=== PATIENT | male | born 1950 | race Caucasian/White ===

== ENCOUNTER 2021-01-22 14:42 | Inpatient (IN) | payer OTHER ==
[~2021-01-22] VITALS: Ht 182.9 cm; Wt 113.9 kg
--- NOTE | ~2021-01-22 | O ---
[facility] [place] [address] [address] [place] [address] OPERATIVE REPORT Name: AMINTA EARLY Room #: 454-P ADM IN M.R.#: [id number] Admission: 01/22/21 Attend Phys: Osman Krishnamurthy MD Discharge: Date of : 48 Report #: [id number] THIS REPORT FOR: cc: FAM - Family physician unknown FAM - Family physician unknown Joshua Peguero MD ~ DOC #: [id number] Joshua Peguero MD DATE OF SERVICE: 01/25/2021 PREOPERATIVE DIAGNOSIS: Acute cholecystitis with abnormal LFTs. POSTOPERATIVE DIAGNOSIS: Acute cholecystitis with choledocholithiasis. PROCEDURE: Laparoscopic cholecystectomy with intraoperative cholangiogram. SURGEON: Joshua Peguero MD ANESTHESIA: General. ESTIMATED BLOOD LOSS: 300 mL. SPECIMENS: Gallbladder. DRAIN: A 10-Welsh round. DESCRIPTION OF PROCEDURE: After informed consent was obtained, the patient was brought to the operating room and placed supine. SCDs were placed and working. Preoperative antibiotics were administered. General anesthesia was induced. The abdomen was prepped and draped in the usual sterile fashion. A 5 mm incision was made in the left upper quadrant. A 5 mm trocar was placed under direct vision. Pneumoperitoneum was established. The left-sided 5 mm trocar was placed. A cautery was used to take down some adhesions of the omentum to the anterior abdominal wall. This allowed for me to be able to place a 5 mm port above the umbilicus under direct vision. Three right upper quadrant ports were placed, all under direct vision. Gallbladder was grasped and retracted cephalad. It was decompressed with a needle. There was white bile. The triangle of Calot was very inflamed. I was able to identify the structures. A ductotomy was made. Cholangiogram catheter was inserted and a cholangiogram was performed. This demonstrated filling of the cystic duct, common bile duct, bifurcation of the hepatics, there was dilation of the common bile duct with multiple common bile duct stones. The contrast did, however, go into the duodenum. The cholangiogram had been performed, the catheter was removed. [facility] [address] [place] [address] OPERATIVE REPORT Name: AMINTA EARLY Room #: 454-P ADM IN M.R.#: [id number] Admission: 01/22/21 Attend Phys: Osman Krishnamurthy MD Discharge: Date of : 48 Report #: [id number] cystic duct was clipped and ligated with a clip and a PDS Endoloop. Gallbladder was then taken off the liver bed with electrocautery. It was placed into an Endopouch and removed. Oozing in the liver bed was controlled with cautery. FloSeal and Surgicel was also used to achieve hemostasis. There was good hemostasis at the end of the case. The ports were removed under direct vision. The fascia and the right-sided incision was closed with a [id number] 0 Vicryl. Skin was closed with 4-0 Monocryl. Incisions were sealed with Steri-Strips. COMPLICATIONS: None. DISPOSITION: The patient was taken to recovery in satisfactory condition. Joshua Peguero MD JDP/KDA By: [id number] Joshua Peguero MD /nt
[2021-01-22 16:08] VITALS: BP 100/49
[2021-01-22] MEDS ORDERED: LIPITOR 20 MG T20 M1 PO (19:50)
[2021-01-22] MEDS ORDERED: BALSALAZIDE DI750 M1 PO (19:50)
[2021-01-22] MEDS ORDERED: CARVEDILOL25 MG PO (19:51)
[2021-01-22] MEDS ORDERED: DILTIAZEM ER180 M2 PO (19:52)
[2021-01-22] MEDS ORDERED: FENOFIBRATE160 MG PO (19:53)
[2021-01-22] MEDS ORDERED: FISH OIL 1,001000 M3 PO (19:54)
[2021-01-22] MEDS ORDERED: FOLIC ACID1 MG PO (19:55)
[2021-01-22] MEDS ORDERED: FUROSEMIDE 20 M20 MG PO (19:55)
[2021-01-22] MEDS ORDERED: GLIPIZIDE ER10 MG PO (19:57)
[2021-01-22] MEDS ORDERED: COZAAR 25 MG TA25 M1 PO (19:58)
[2021-01-22] MEDS ORDERED: METFORMIN HCL500 M3 PO (19:58)
[2021-01-22] MEDS ORDERED: SPIRONOLACTONE25 MG PO (20:00)
[2021-01-22] MEDS ORDERED: ACTOS 45 MG45 M1 PO (20:00)
[2021-01-22] MEDS ORDERED: B COMPLEX1 EACH PO (20:01)
[2021-01-22] MEDS ORDERED: VITAMIN C500 M2 PO (20:02)
--- NOTE | 2021-01-22 20:28 | NUR ---
Direct admit from [facility] due to abdominal pain; transferred to room safely. On room air. Vital signs stable. On NPO- pt informed and aware; mouth swabs provided. On MS, not on telemetry; no complains and signs of chest pain, crushing sensation and heaviness. Assisted in ADLs. Continent of bowel and bladder, able to use urinal- output measured and recorded accordingly. No complains of pain made during assessment. With SL at R FA- NS at 100cc/hr started as ordered; on IV antibiotics as well. Admission assessment, history and education done. Admission forms signed.\ Dr Goncalves informed re: admission; pt seen by Dr Goncalves and ELVIA Calderon at bedside.
[2021-01-22 20:44] VITALS: BP 90/52
[2021-01-23 00:10] VITALS: BP 89/51
[2021-01-23 05:11] VITALS: BP 93/56
[2021-01-23 06:01] LABS: ABSOLUTE NEUTROPHILS 17.3 thou/uL (1.4-8.2); HEMATOCRIT 28.6 % (42.0-52.0); HEMOGLOBIN 9.1 gm/dL (14.0-18.0); LYMPHOCYTES 1.8 % (24.0-44.0); MCHC 31.9 g/dL (28.0-37.0); MCV 84.8 fL (80.0-100.0); MONOCYTES 4.7 % (1.0-8.0); PLATELET COUNT 176 thou/uL (150-400); POLYS 93.5 % (36.0-66.0); RBC 3.37 mil/uL (4.50-6.00); RDW 15.7 % (10.5-14.5); WBC 18.5 thou/uL (4.0-11.0)
[2021-01-23 06:25] LABS: ALBUMIN 2.4 g/dL (3.4-5.0); CALCIUM 8.5 mg/dL (8.5-10.1); CREATININE 2.7 mg/dL (0.7-1.3); MAGNESIUM 1.7 mg/dL (1.8-2.4); POTASSIUM 4.6 mmol/L (3.5-5.1); TOTAL BILIRUBIN 3.3 mg/dL (0.2-1.0); TOTAL PROTEIN 5.7 g/dL (6.4-8.2)
--- NOTE | 2021-01-23 07:20 | NUR ---
ASSUMED PT CARE AROUND 1900. A&OX4. VERY PLEASANT AND COOPERATIVE. C/O VERY MILD RUQ AND LUQ ABDOMINAL PAIN. PT DID NOT WANT ANY PAIN MEDICATION. DENIED N/V. NPO SINCE MIDNIGHT UNTIL SEEN BY GI AND SURGERY TODAY. PT SLEPT MOST OF THE NIGHT. RESP EVEN AND UNLABORED. PROGRESSING SLOWLY TOWARD POC GOALS. REPORT GIVEN TO ONCOMING NURSE.
[2021-01-23 07:30] VITALS: BP 109/48
[2021-01-23 15:33] VITALS: BP 106/47
--- NOTE | 2021-01-23 16:40 | NUR ---
Assumed pt care at 7am.Pt in and out of bed to bathroom byself with steady gait.Assessment completed.vss but low dbp noted.Dr Irving notified.Pt kept npo for abdominal us which was done around 10am.Blood sugar at noon was 62.Dr Irving notified.Order received.1amp of D50 given ivp with better result.Pt in bed resting and watching tv without c/o.Will continue to monitor.
[2021-01-23 19:46] VITALS: BP 121/60
[2021-01-24 04:05] LABS: URINE BILIRUBIN 1+ (Negative); URINE BLOOD NEGATIVE (Negative); URINE CLARITY CLEAR; URINE COLOR YELLOW; URINE GLUCOSE-RANDOM* NEGATIVE (Negative); URINE KETONES NEGATIVE (Negative); URINE LEUKOCYTES-REFLEX NEGATIVE (Negative); URINE NITRITE-REFLEX NEGATIVE (Negative); URINE PROTEIN (DIPSTICK) 1+ (Negative); URINE UROBILINOGEN 0.2 E.U./dl (0.2-1.0)
[2021-01-24 04:11] LABS: ICTOTEST (BILI CONFIRMATORY) Positive (Negative)
[2021-01-24 04:12] LABS: BACTERIA-REFLEX None Seen /HPF (None Seen); CRYSTALS None Seen /LPF (None Seen); FINE GRANULAR CASTS 0-3 Few /LPF (None Seen); MUCUS 0-3 Light strn/LPF (None Seen); SQUAMOUS None Seen /LPF (0-3); URINE WBC-REFLEX None Seen /HPF (0-5)
[2021-01-24 04:13] LABS: AMORPHOUS URATES Few /LPF (None Seen); URINE RBC None Seen /HPF (NONE SEEN)
--- NOTE | 2021-01-24 05:10 | NUR ---
Assumed pt care at 1900. A/OX4,pleasant. VSS. Denies N/V, pain 08/30 on assessment denies need for any pain meds. Pt's NPO for possible ERCP/MRCP.Ice and swabs provided for oral care. N.o for bladder scan and straight cathif >400cc. Void 200cc,bladder scan 14cc. C/o sinus congestion;order for Flonase obtained.Up ad maddy,voiding per urinal. Pending collection of OBS,will endorse to oncoming nurse. Resting quietly w/o any distress at this time,will continue to monitor pt. IVF infusing via RFA w/o problems.
[2021-01-24 05:42] LABS: INR 1.98; PROTIME 20.9 Seconds (10.5-12.1)
[2021-01-24 05:45] LABS: ALBUMIN 2.3 g/dL (3.4-5.0); CALCIUM 8.6 mg/dL (8.5-10.1); CREATININE 2.2 mg/dL (0.7-1.3); MAGNESIUM 2.3 mg/dL (1.8-2.4); PHOSPHORUS 2.2 mg/dL (2.6-4.7); TOTAL BILIRUBIN 2.4 mg/dL (0.2-1.0); TOTAL PROTEIN 5.8 g/dL (6.4-8.2)
[2021-01-24 05:49] LABS: ABSOLUTE NEUTROPHILS 7.6 thou/uL (1.4-8.2); BASOPHILS 0.2 % (0.0-2.0); EOSINOPHILS 0.6 % (0.0-3.0); HEMATOCRIT 26.6 % (42.0-52.0); HEMOGLOBIN 8.9 gm/dL (14.0-18.0); LYMPHOCYTES 2.2 % (24.0-44.0); MCH 28.1 pg (26.0-34.0); MCHC 33.5 g/dL (28.0-37.0); MONOCYTES 4.7 % (1.0-8.0); PLATELET COUNT 174 thou/uL (150-400); POLYS 92.3 % (36.0-66.0); RBC 3.16 mil/uL (4.50-6.00); RDW 15.7 % (10.5-14.5); WBC 8.2 thou/uL (4.0-11.0)
[2021-01-24 05:51] LABS: POTASSIUM 3.6 mmol/L (3.5-5.1)
[2021-01-24 07:39] VITALS: BP 129/60
[2021-01-24 11:12] VITALS: BP 129/60
[2021-01-24 16:49] VITALS: BP 145/65
[2021-01-24 19:24] VITALS: BP 151/62
--- NOTE | 2021-01-24 19:24 | NUR ---
ASSUMED CARE OF PATIENT AT SHIFT CHANGE. ASSESSMENT CHARTED. MEDICATIONS ADMINISTERED PER EMAR. VSS. PATIENT IS A&OX4 AND ABLE TO MAKES NEEDS KNOWN. PATIENT GETS UP INDEPENDENTLY; STEADY ON FEET AND NO ISSUES. SPOKE TO DR CRUZ AND OKAYED PATIENT FOR CLR LIQUIDS BUT WILL BE NPO AFTER MIDNIGHT FOR ERCP/MRCP. NEW IV PLACED ON L FA INFUSING ABX AND PPN W NO ISSUES. FSBS STABLE THIS SHIFT. DENIES PAIN OR OTHER NEEDS. ENDORSED TO NOC RN
[2021-01-25 05:34] LABS: ALBUMIN 2.1 g/dL (3.4-5.0); CALCIUM 8.5 mg/dL (8.5-10.1); CREATININE 1.7 mg/dL (0.7-1.3); MAGNESIUM 2.2 mg/dL (1.8-2.4); POTASSIUM 4.1 mmol/L (3.5-5.1); TOTAL PROTEIN 5.7 g/dL (6.4-8.2)
--- NOTE | 2021-01-25 07:55 | NUR ---
Assumed pt care at 1900. A/OX4,VSS. Denies pain or N/V. Up ad maddy in room w/o any problems. PPN/Abts infusing via LFA w/o any problems. Pt has been NPO since midnight for surgery. Blood sugar stable. Pt denies any further needs at this time. 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
--- NOTE | 2021-01-25 14:45 | NUR ---
ASSUMED CARE OF PATIENT AT SHIFT CHANGE. ASSESSMENT CHARTED. MEDICATIONS HELD PER NPO STATUS. PATIENT IS A&OX4 AND MAKES NEEDS KNOWN. STEADY ON FEET AND ADLIB PRIOR TO LAP GER. ABX & PPN INFUSING ON L FA W NO ISSUES; PATIENT LEFT UNIT AT APPROX. 0800 FOR THE LAP. GER. PATIENT RETURNED AROUND 1245. PATIENT RESTARTED ON REGULAR DIET HOWEVER APPETITE IS POOR AFTER SURGERY. PATIENT IS TOLERATING ICE WATER WELL. PATIENT A BIT SLEEPY STILL BUT IS EASILY AROUSED. VOICES DULL PAIN ON ABD AREA ISRAEL. HAYDEE SITE. PATIENT NOW HAS 4 LAP SITES THAT ARE C/D/I &1 SITE WITH MICHAEL THOMAS DRAIN ATTACHED ON RUQ. PATIENT MAY NEED ERCP TOMORROW HOWEVER HAND PRESSER FROM GI STATED HE MAY HAVE PASSED THE STONES AND MAY NO LONGER NEED IT. IF INDICATED PATIENT WILL BE NPO AFTER MIDNIGHT. PATIENT VOICES NO FURTHER NEEDS; WILL CONTINUE TO MONITOR FREQUENTLY
--- NOTE | 2021-01-25 15:41 | NUR ---
PT ADMITTED RELATED TO CHOLELITHIASIS FROM [facility]. CM REVIEWED CHART AND SPOKE WITH CARE TEAM. CM MET WITH PT AT BEDSIDE THIS DAY. PT APPEARED TO BE A&O X4. CM ROLE INTRODUCED. PT INDICATED HE RESIDES IN A HOUSE WITH HIS PETS WITH 1 STEP TO ENTER AND A COUPLE STEPS INSIDE. 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 PT INDICATED NO DME. PT INDICATED HIS PCP IS DR. CALABRESE AT [facility]. PT INDICATED HE WILL NEED TRANSPORT BACK TO HIS CARE IN THE ED AT [facility] UPON DC. PT HAD MARY CYR THIS DAY. CM FOLLOWING REGARDING DC PLANNING.
--- NOTE | 2021-01-25 16:41 | NUR ---
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
[2021-01-25 17:44] LABS: HEMATOCRIT 30.4 % (42.0-52.0); HEMOGLOBIN 9.9 gm/dL (14.0-18.0); MCH 27.4 pg (26.0-34.0); MCHC 32.6 g/dL (28.0-37.0); MCV 83.9 fL (80.0-100.0); RBC 3.62 mil/uL (4.50-6.00); RDW 16.1 % (10.5-14.5); WBC 14.6 thou/uL (4.0-11.0)
[2021-01-25 19:44] VITALS: BP 149/70
[2021-01-26] VITALS (11 sets, daily range): BP systolic 111–182; BP diastolic 68–96
--- NOTE | 2021-01-26 04:05 | NUR ---
ASSUMED CARE OF PT AT SHIFT CHANGE. PT IS AOX4 AND LETS NEEDS BE KNOWN. PT IS POST OP DAY O. 4XLAP SITES ARE C/D/I. HAYDEE DRAIN IN PLACE. ASSESSMENT CHARTED. PT REPORTED SOME ABD PAIN; PRNS PROVIDED. PT DENIED NAUSEA OR SOA. PT WAS PLACED NPO AT NM. PPN AND ABX TREATMENT CONTINUED. PT WAS ABLE TO GET COMFORTABLE AND SLEEP PART OF THE SHIFT. VSS AND NO S/S OF ACUTE DISTRESS. WILL CONTINUE TO MONITOR.
[2021-01-26 06:11] LABS: CALCIUM 8.4 mg/dL (8.5-10.1); CREATININE 1.7 mg/dL (0.7-1.3); MAGNESIUM 2.4 mg/dL (1.8-2.4); PHOSPHORUS 2.6 mg/dL (2.5-4.9)
[2021-01-26 06:40] LABS: HEMATOCRIT 26.7 % (42.0-52.0); HEMOGLOBIN 8.8 gm/dL (14.0-18.0); MCH 27.3 pg (26.0-34.0); MCHC 32.9 g/dL (28.0-37.0); RBC 3.22 mil/uL (4.50-6.00); RDW 15.5 % (10.5-14.5); WBC 9.5 thou/uL (4.0-11.0)
[2021-01-26 06:56] LABS: PROTIME 34.5 Seconds (10.5-12.1)
[2021-01-26 06:58] LABS: INR 3.35
--- NOTE | 2021-01-26 13:41 | NUR ---
PT IS POD# 1 FROM LAP GER. PT TO HAVE AN ERCP THIS DAY. CM FOLLOWING REGARDING DC PLANNING. PT WILL NEED TRNASPROT UPON DC.
[2021-01-26 15:00] LABS: INR 2.37; PROTIME 24.8 Seconds (10.5-12.1)
--- NOTE | 2021-01-26 15:41 | NUR ---
ASSUMED CARE OF PT AT 0700 THIS MORNING. PT WAS ADMITTED FOR CHOLELITHIASIS. PT HAS LAPRASCOPY SITESX4 WITH TENDERNESS AND BLOATING FEELING IN ABD. PT IS A/OX4, SKING W/D/ATR, SKING INTACT EXCEPT LAP SITES. PT IS NPO AND IS TO HAVE ANOTHER CLEANOUT TODAY. PT'S INR WAS ABOVE 3 AND NEEDS FFB TRANSFUSIONS PRIOR TO THE PROCEDURE. TRANSFUSED 2 UNITS BEFORE LAB CAME TO DRAW BLOOD. ADMINISTERING 4 TOTAL UNITS. BEFORE PT GOES DOWN FOR PROCEDURE. ASSESSMENTS OTHERWISE UNREMARKABLE. CALL LIGHT AND OTHER NEEDS ARE WITHIN REACH AND PT CAN ANBULATE TO THE RESTROOM WITH SB ASST.VSS, MEDS AND TX GIVEN NEEDED AND SCHEDULED.
--- NOTE | 2021-01-26 20:55 | NUR ---
Pt. arrived to the unit from PACU and staff settled patient into the room. This nurse entred the room and patient was short of air and 02 sat at 88% on 2L nasal canula. Pt. skin color pale. He is alert and offers no c/o pain. Abdomen disteneded and hard upon palpatation. Bp elevated. O2 saturations decreasing to the upper 70's. All four lung alexandra coarse upon auscultation. Rapid response team was called. Lung sounds in all 4 lung alexandra were coarse upon auscultation. Skin color pale. Abdomen was hard upon palpatation and distended. Pt. awake and talking to nurse. No c/o pain, but c/o shortness of air. Bp also boston- vated. Rapid response team was called.
[2021-01-26 21:20] LABS: HEMATOCRIT 32.9 % (42.0-52.0); HEMOGLOBIN 10.2 gm/dL (14.0-18.0); MCH 26.7 pg (26.0-34.0); MCV 86.1 fL (80.0-100.0); RBC 3.82 mil/uL (4.50-6.00); RDW 16.7 % (10.5-14.5)
[2021-01-26 21:24] LABS: WBC 27.4 thou/uL (4.0-11.0)
[2021-01-26 21:39] LABS: ALBUMIN 2.6 g/dL (3.4-5.0); CALCIUM 8.9 mg/dL (8.5-10.1); CREATININE 1.6 mg/dL (0.7-1.3); TOTAL BILIRUBIN 1.5 mg/dL (0.2-1.0); TOTAL PROTEIN 6.5 g/dL (6.4-8.2); TROPONIN-I 0.09 ng/mL (<0.06)
--- NOTE | 2021-01-26 21:41 | NUR ---
RESPONDED TO MANAGER INTERNSHIP FOR DYSPNEA POST ERCP. O2 SAT 60'S ON 2L NC UPON ARRIVAL. PLACED ON NRB 100% WITH LITTLE IMPROVEMENT. RT TO BEDSIDE FOR TX. EKG CHANGES NOTED WITH NEW LEFT BUNDLE. PT DENIES CHEST PAIN BUT IS UNABLE TO SPEAK IN COMPLETE SENTENCES DUE TO DYSPNEA. PT BEGAN LOSING CONSCIOUSNESS, STARTED BAGGING IMMEDIATELY WITH SAT INTO UPPER 80S. ER DOCTOR CALLED FOR RAPID INTUBATION AND TRANSFER TO ICU. CARLITO BROOKS TO BEDSIDE. SEE MANAGER INTERNSHIP FLOWSHEET FOR FURTHER DETAILS.
[2021-01-26 21:42] LABS: POTASSIUM 6.3 mmol/L (3.5-5.1)
--- NOTE | 2021-01-26 21:45 | NUR ---
Ernestina Cook called and updated on patient. Pt. needing intubation. Araceli STRANGE at the bedside. Call place to patients Authorized contact, Tye Murphy, but no answer. Message left on voice mail. Pt. transfered to ICU.
--- NOTE | 2021-01-26 22:20 | NUR ---
PT DOWN TO CT SCAN WITH ON AWAKE COUNSELOR, RN NEONATAL, AND RT ON TRANSPORT MONITOR FOR CT SCAN HEAD/ABD/PELVIS. PT REMAINS OBTUNDED.
[2021-01-26 23:31] LABS: BE(vivo) -7.4 mmol/L (-2 to +3); HCO3 20.4 mmol/L (22.0-26.0); PCO2 51.7 mmHg (35.0-45.0); PO2 183.5 mmHg (80.0-100.0)
[2021-01-26 23:32] LABS: pH 7.214 (7.360-7.450)
[2021-01-27] VITALS (30 sets, daily range): BP systolic 81–136; BP diastolic 45–94
[2021-01-27 00:09] LABS: CALCIUM 8.5 mg/dL (8.5-10.1); CREATININE 2.1 mg/dL (0.7-1.3)
[2021-01-27 00:10] LABS: POTASSIUM 6.5 mmol/L (3.5-5.1)
[2021-01-27 04:35] LABS: BE(vivo) -3.3 mmol/L (-2 to +3); HCO3 21.2 mmol/L (22.0-26.0); PCO2 35.8 mmHg (35.0-45.0); PO2 100.4 mmHg (80.0-100.0); pH 7.391 (7.360-7.450); sO2 97.6 % (92.0-98.0)
--- NOTE | 2021-01-27 06:07 | NUR ---
PT TRANSFERED FROM TO ICU AROUND 2229. HE ARRIVED INTUBED AND ON THE VENT WITH 100% FIO2. DR COKER AND DR GUERRA WERE UPDATED ON PT STATUS. DR GUERRA STATED HE HAD ALREADY SPOKEN WITH DR LEDBETTER (SURGERY) REGARDING PT CHANGE IN STATUS. PT WAS MINIMALLY RESPONSIVE UPON INITIAL ASSESSMENT. HE LATER BECAME EASILY ARROUSABLE TO STIMULI AND IS ABLE TO FOLLOW COMMANDS. PROPOFOL INITIATED FOR VENT MGT. BILAT WRIST RESTRAINTS IN PLACE TO PREVENT DISCONNECTING MEDICAL EQUIPTMENT, PT DOES MOVE ARMS WHEN HE IS AWAKE. SBP 80S-100S WITH INCREASE IN PROPOFOL GTT. 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 PT WEANED OFF PROPOFOL GTT. INSTEAD, FENTANYL AND VERSED GTTS WERE STARTED FOR VENT MGT WITHOUT CAUSING MUCH HYPOTENSION. OGT TO LIS WITH SMALL AMOUNT DARK RED OUTPUT. CARBALLO TO DD WITH ADEQUATE URINE OUTPUT. RT TITRATED FIO2 DOWN TO 40%. PT TOLERATING VENT WELL. RN ATTEMPTED TO CALL PT'S AUTHORIZED CONTACT LAST NIGHT. MESSAGE LEFT. NO CALL BACK YET. PT NOT PROGRESSING WELL TOWARD POC GOALS. WILL GIVE REPORT TO ONCOMING NURSE.
[2021-01-27 06:12] LABS: CALCIUM 7.8 mg/dL (8.5-10.1); MAGNESIUM 2.5 mg/dL (1.8-2.4)
[2021-01-27 06:13] LABS: POTASSIUM 6.6 mmol/L (3.5-5.1)
--- NOTE | 2021-01-27 08:59 | EKG ---
[address] [employer] [place] [address] ELECTROCARDIOGRAM REPORT Name: AMINTA EARLY Room #: 239-P ADM IN M.R.#: [id number] Admission: 01/22/21 Attend Phys: Osman Krishnamurthy MD Discharge: Date of : 48 Report #: [id number] [facility] Test Date: 2021-01-27 Test Time: 08:24:56 Pat Name: AMINTA EARLY Department: Room: 239 Gender: M Production Grip: FSCHWALBE : 1950 Requested By: Ivette Albarran Order Number: [id number] MD: Mo Bangura Measurements Intervals [place] Rate: 69 P: 25 GA: 81 QRS: 42 QRSD: 94 T: 52 QT: 451 QTc: 484 Interpretive Statements Sinus rhythm Short GA interval Borderline low voltage, extremity leads Borderline prolonged QT interval No previous ECG available for comparison Electronically Signed On 01-27-2021 8:58:45 CDT by Mo Bangura [email or web address] <ELECTRONICALLY SIGNED> By: Mo Bangura MD, [facility] 01/27/21 0858 3 Mo Bangura MD, FACC /EPI
[2021-01-27 11:56] LABS: INR 1.3
--- NOTE | 2021-01-27 12:10 | EKG ---
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
--- NOTE | 2021-01-27 12:16 | NUR ---
BLOOD NOTED AT THE OGTUBE AT 0530 THIS MORNING, SO FAR 300cc FILLED IN CANNISTER, DARK RED FLUID, GI MANAGER CLINICAL INFORMATICS NOTIFIED. HARDNESS NOTED AT THE RUQ WELL. COAG PROFILED ORDERED. LASIX GIVEN THIS MONING BY RENAL FOR ELEVATED POTASSIUM WELL. APPOXIMATELY 1.5L DIURESED SO FAR. MAP REMAINS >65. PT STILL REMAINS ON FENTANYL/VERSED GTT FOR SEDATION. PT IS SEDATED/DROWSY, AWAKE ENOUGH TO NOD YES/NO, CURRENTLY TOLERATING THE VENT SETTINGS.
[2021-01-27 13:13] LABS: HEMATOCRIT 27.1 % (42.0-52.0); HEMOGLOBIN 8.8 gm/dL (14.0-18.0)
[2021-01-27 13:27] LABS: BE(vivo) -0.8 mmol/L (-2 to +3); HCO3 23.1 mmol/L (22.0-26.0); PCO2 35.1 mmHg (35.0-45.0); pH 7.436 (7.360-7.450); sO2 99.3 % (92.0-98.0)
--- NOTE | 2021-01-27 15:34 | P ---
[facility] [place] [address] [address] [place] [address] PROCEDURE REPORT Name: AMINTA EARLY Room #: 239-P ADM IN M.R.#: [id number] Admission: 01/22/21 Attend Phys: Osman Krishnamurthy MD Discharge: Date of : 48 Report #: [id number] THIS REPORT FOR: cc: FAM - Family physician unknown FAM - Family physician unknown Pablo Leigh MD ~ DOC #: [id number] cc: Joshua Peguero MD, MD Pablo Zepeda MD DATE OF SERVICE: 01/26/2021 PROCEDURE PERFORMED: Endoscopic retrograde cholangiopancreatography with sphincterotomy and stone removal. HISTORY OF PRESENT ILLNESS: The patient is a 70-year-old male with recent history of abdominal pain and elevated liver function test, underwent ultrasound of the abdomen on 01/23/2021 showing cholelithiasis and sludge noted in the gallbladder with slight gallbladder wall thickening. Findings consistent with early changes of acute cholecystitis. Common bile duct was dilated at 9 mm. He underwent laparoscopic cholecystectomy by Dr. Peguero yesterday. Intraoperative cholangiogram was obtained showing multiple filling defects consistent with choledocholithiasis. Plan is for ERCP today. Currently, his labs show white blood cell count 9.5, hemoglobin 8.8, platelet count 189. Earlier today, his INR was checked at 3.35. We then gave him 3 units of FFP prior to the third one being fully given his INR was repeated at 2.37. He was given a total of 4 of FFP today. He is already on IV Zosyn at this time. His bilirubin today was 2.0, which is down from 3.3 on admission. Plan is for ERCP. DESCRIPTION OF PROCEDURE: The risks and benefits of the procedure were explained to the patient, those risks including but not limited to bleeding, perforation and the risk of sedation as well as potential risk for post-ERCP pancreatitis. He understood these risks and gave informed consent. The procedure was performed in the operating room under general anesthesia. The patient was already on scheduled IV Zosyn at this time. He was given 50 mg indomethacin rectal suppository prior to the procedure as well. Next, using a standard Olympus side-viewing ERCP scope, the scope was placed in the patient's mouth and advanced under direct vision through the esophagus, stomach and into the second portion of the duodenum, at which point the major papilla was identified and normal in appearance other than adjacent diverticulum was noted. Next, using a Garcia-Cook 0.025 sphincterotome catheter, the common bile duct was cannulated and a cholangiogram was obtained. Multiple filling defects consistent with common bile duct stones were seen. Common bile duct was dilated to approximately 10 mm. The intrahepatics were normal. The recent clip on the cystic duct were seen. There was no evidence of bile leak with cholangiogram. At this point, a large sphincterotomy was performed without difficulty. Next, I [address] [address] PROCEDURE REPORT Name: AMINTA EARLY Room #: 239-P ADM IN M.R.#: [id number] Admission: 01/22/21 Attend Phys: Osman Krishnamurthy MD Discharge: Date of : 48 Report #: [id number] used a balloon catheter. Multiple sweeps were performed, some sludge and debris were removed; however, stones remained on cholangiogram. At that point, I decided to proceed with a basket catheter. With this, I was able to crush and remove all the stones. Multiple stones were removed. Multiple sweeps were performed. After this, a balloon occlusion cholangiogram was then obtained. No further obvious filling defects were seen. There appears to be good bile drainage as well as a contrast drainage at this point. At this point, the scope was then withdrawn and the procedure terminated. The patient tolerated the procedure well. IMPRESSION: 1. Multiple common bile duct stones and dilated common bile duct, status post endoscopic retrograde cholangiopancreatography with sphincterotomy and removal of stones, both with the balloon and wire basket as described above. 2. No evidence of bile leak. 3. Normal intrahepatic ducts. RECOMMENDATIONS: 1. Observe the patient post-procedure. 2. Continue IV antibiotics. 3. Continue to monitor liver function tests. Thank you for allowing me to participate in his care. Pablo Leigh MD CCM/ALL <ELECTRONICALLY SIGNED> By: Pablo Leigh MD 01/27/21 1534 1859 0016 Pablo Leigh MD /nt
--- NOTE | 2021-01-27 19:07 | PATH ---
[facility] [address] [place] [address] PATHOLOGY RPT PROCEDURE Name: AMINTA EARLY Room #: 239-P ADM IN M.R.#: [id number] Admission: 01/22/21 Date of : 48 Discharge: Report #: [id number] Path Case #: [id number] [facility] Accession Number: [id number] . 01 Material submitted: . gallbladder - GALLBLADDER . 01 Clinical history: . LAPAROSCOPIC CHOLECYSTECTOMY WITH G.... CHOLELITHIASIS . 02 Diagnosis: Gallbladder, cholecystectomy: - Marked acute cholecystitis with extensive ulceration. - Moderate acute serositis. - Cholelithiasis. - Cauterized hepatic parenchyma at gallbladder bed. (IUV:pit; 01/27/2021) QTP 01/27/2021 1435 Local . 02 Electronically signed: . Landy Bell MD, Pathologist NPI- [id number] . 01 Gross description: . Fixative: Formalin Labeled: Gallbladder Specimen received: Previously opened cholecystectomy specimen Dimensions: 8.5 x 4.8 x 4.3 cm Serosa: Capellan-red and hemorrhagic with multiple full-thickness defect in the hepatic bed measuring from 0.4-2.3 cm in greatest dimension Lymph node: None identified Mucosa: Capellan-brown and velvety with capellan-white purulent exudate in the gallbladder neck and gallbladder fundus Average wall thickness: Ranges from 0.4-0.8 cm Calculi: Yes, multiple multifaceted red-brown calculi are present within the gallbladder and container measuring in aggregate 5.5 x 4.5 x 2.3 cm and ranging from 0.1-3.5 cm in greatest dimension Abnormalities: The wall of the fundus appears cystic and thickened. A1- Facing End Trimmer body, fundus, and the cystic duct margin. A2- Additional fundus. ([facility]; 01/26/2021) [facility] 01/26/2021 1824 Local . 02 Pathologist provided ICD-10: K80.00, K65.8, K82.8 . 02 CPT . [address] [address] PATHOLOGY RPT PROCEDURE Name: AMINTA EARLY Room #: 239-P ADM IN M.R.#: [id number] Admission: 01/22/21 Date of : 48 Discharge: Report #: [id number] Path Case #: [id number] Specimen Comment: A courtesy copy of this report has been sent to [phone], [phone] Specimen Comment: [phone] Specimen Comment: Report sent to / DR ZABALA Performed at: [address], [place], [place] [id number] MD Enio Richmond MD Phone: [phone] Performed at: [address] [id number] MD Landy Bell MD Phone: [phone]
[2021-01-28] VITALS (21 sets, daily range): BP systolic 122–141; BP diastolic 57–81
--- NOTE | 2021-01-28 01:36 | NUR ---
ASSESSMENT: PT REMAIN ALERT AND ORIENT TIMES THREE, FORGETFUL AT TIMES TO EQUIPMENT AND POC. EXTUBATING SELF TODAY, PT CURRENTLY IS ON 3 LITERS NC WITH SATS 98-99%. MINIMAL AMTS OF SPUTUM, SUCTION PER BRANDY PROVIDED. SPUTUM BARR IN COLOR AND THICK. NO BM THIS SHIFT,. CARBALLO PATENT WITH ADEQUATE AMTS OF UO. HAYDEE DRAIN INTACT, SS OUTPUT. VSS, AFEBRILE. SR PER MONITOR. FOLLOW COMMANDS. FAIR PROGRESS TOWARDS DC GOALS. WILL CONTINUE TO MONITOR.
[2021-01-28 04:43] LABS: HEMATOCRIT 24.5 % (42.0-52.0); HEMOGLOBIN 8.1 gm/dL (14.0-18.0); MCH 27.4 pg (26.0-34.0); MCV 83.2 fL (80.0-100.0); RBC 2.95 mil/uL (4.50-6.00); RDW 15.7 % (10.5-14.5); WBC 12.7 thou/uL (4.0-11.0)
[2021-01-28 04:51] LABS: INR 1.3
[2021-01-28 04:58] LABS: CALCIUM 8.1 mg/dL (8.5-10.1); CREATININE 1.8 mg/dL (0.7-1.3); MAGNESIUM 2.1 mg/dL (1.8-2.4); PHOSPHORUS 1.7 mg/dL (2.5-4.9); POTASSIUM 4.1 mmol/L (3.5-5.1)
--- NOTE | 2021-01-28 07:49 | HC ---
[facility] [place] [address] CONSULTATION Name: AMINTA EARLY Room #: 239-P ADM IN M.R.#: [id number] Admission: 01/22/21 Attend Phys: Osman Krishnamurthy MD Discharge: Date of : 48 Report #: [id number] THIS REPORT FOR: cc: FAM - Family physician unknown FAM - Family physician unknown Yi Suarez MD ~ DOC #: [id number] Yi Suarez MD REASON FOR CONSULTATION: Elevated creatinine. REASON FOR THE PRESENTATION: Acute cholecystitis, transfer. HISTORY OF PRESENT ILLNESS: This is obtained from the medical record. The patient is currently intubated and sedated. He is a 70-year-old with a history of hypertension, Crohn's disease. He was a direct admit from [facility] for general surgery evaluation for an episode of acute cholecystitis. I am not able to obtain any details from the patient given his current intubation status. He reported to the admitting team that he was having some upper quadrant abdominal pain for a few days before his presentation. Other details are not available. The patient's CT revealed cholelithiasis suggesting acute cholecystitis with some degree of biliary ductal obstruction. The patient had laparoscopic cholecystectomy. Postoperatively, the patient's condition deteriorated with significant worsening of his pulmonary status, requiring intubation; hypotension, requiring an ICU admission. He ended up having an ERCP with a cholangiogram. He is currently in the ICU after his sphincterotomy and cholecystectomy required fresh frozen plasma for an elevated INR. Postoperatively, the patient's potassium had been persistently elevated, his creatinine on arrival to our facility was 2.7, trended down to as low as 1.6 and now is up to 2.0. I was consulted to manage his acute kidney injury. PAST MEDICAL HISTORY: I am not able to obtain any details about his past medical history given his current mental status. HOME MEDICATIONS: 1. Fenofibrate. 2. Atorvastatin. 3. Carvedilol. 4. Losartan. 5. Spironolactone. 6. Lasix. 7. Folic acid. 8. Glipizide. ALLERGIES: GEMFIBROZIL. [facility] [address] [place] [address] CONSULTATION Name: AMINTA EARLY Room #: 239-P [facility] IN .R.#: [id number] Admission: 01/22/21 Attend Phys: Osman Krishnamurthy MD Discharge: Date of : 48 Report #: [id number] FAMILY HISTORY: Unobtainable given the patient's current mental status. SOCIAL HISTORY: Unobtainable given the patient's current mental status. PHYSICAL EXAMINATION: GENERAL: The patient is intubated and sedated. VITAL SIGNS: Blood pressure is 100/50, pulse rate is 70, respiratory rate is 15. HEAD AND NECK: ET tube in place. CHEST: No crackles, but decreased air entry bilaterally. CARDIOVASCULAR: No rubs detected. ABDOMEN: Soft. There is a drain in the right upper quadrant. EXTREMITIES: Lower extremities, +1 edema. LABORATORY :VALUES White blood cell count is up to 27.4, hemoglobin is 10.2, platelets is 336. Sodium is 143, potassium is 6.6, BUN is 46, creatinine is 2.0. ASSESSMENT, IMPRESSION AND PLAN: 1. Acute kidney injury. 2. Hyperkalemia. 3. Post-cholecystectomy. 4. Post-sphincterotomy for gallbladder stones. 5. The patient appears to be in septic shock causing his rapid deterioration. This has resulted in worsening of his renal function due to acute tubular necrosis and hyperkalemia. 6. Continue current measures of IV fluid resuscitation. 7. One time Lasix dose. 8. Treat his hyperkalemia. 9. He was maintained on an angiotensin converting enzyme inhibitor and spironolactone as an outpatient and those were discontinued; however, his potassium was within normal range on his arrival. We need to obtain his previous values. 10. Routine postoperative care. 11. Appropriate antibiotic coverage for sepsis. 12. ID consultation given his significant leukocytosis. 13. We will continue to follow during his hospital stay. I will reach out his family member. No indication for dialysis at this point. Yi Suarez MD AIA/SHE [address] [address] CONSULTATION Name: AMINTA EARLY Room #: 239-P ADM IN M.R.#: [id number] Admission: 01/22/21 Attend Phys: Osman Krishnamurthy MD Discharge: Date of : 48 Report #: [id number] <ELECTRONICALLY SIGNED> By: Yi Suarez MD 01/28/21 0749 2 Yi Suarez MD /nt
--- NOTE | 2021-01-28 13:02 | NUR ---
PT IS PROGRESSING TOWARDS DISCHARGE, WAS PLACED ON CLEAR LIQ DIET TODAY, PT ABLE TO TOLERATE FOOD OKAY, PT HAS BEEN C/O BURPING SINCE THE SURGERY AND APPEARS UNCOMFORABLE AT TIMES. NO CONCERN OF PAIN AT THIS TIME. CLEARED BY GI TO PROCEED DIET TOLERATED. ON 1L/NC, GREAT DIURESIS, OFF AND ON CONFUSION AT IMES BUT PT IS MOSTLY RESTING/RECOVERING TODAY
--- NOTE | 2021-01-28 13:52 | NUR ---
ON-GOING ASSESSMENT: CM REVIEWED CHART AND MET WITH PATIENT AT THE BEDSIDE. PT WAS WEANED FROM VENT AND IS CURRENTLY ON 1L OXYGEN. PT REPORTS THAT HE DOES NOT HAVE ANY OXYGEN AT HOME. CM DISCUSSED ROLE AND ORDERED PT. PT REPORTS THAT NORMALLY HE IS INDEPENDENT WITH ADLS AND AMBULATION BUT DOES HAVE A CANE AND WALKER AT HOME IF NEEDED. CM DISCUSSED THAT PT HAS BEEN ORDERED AND PENDING RECOMMENDATIONS MAY BENEFIT FROM HH. PT REPORTS HE WANTS TO SEE HOW HE DOES WITH THERAPY BEFORE EVALS ARE SENT FOR HH BUT WOULD BE OPEN TO HH IF NEEDED. PT REPORTS HAVING HH IN THE PAST BUT UNSURE THE AGENCY. PLANS ARE TO POSSIBLY MOVE OUT OF ICU TODAY. AWAITING PT EVAL AT THIS TIME.
[2021-01-29] VITALS (7 sets, daily range): BP systolic 128–150; BP diastolic 55–74
--- NOTE | 2021-01-29 01:34 | NUR ---
PATIENT REMAINS A/O X4. DENIES ANY SOA, PAIN, NV. AFEBRILE.VSS. CARBALLO IN PLACE WITH GOOD U/O. PATIENT HAS TX ORDERS TO CCU. REPORT CALLED TO CCU RN. PATIENT OFF THE UNIT AT APPROX 0100. ATTACHED TO THE MONITOR. ALL QUESTIONS ANSWERED. ALL PT BELONGINGS TAKEN WITH PATIENT. DENIES NEEDS.
--- NOTE | 2021-01-29 03:18 | NUR ---
PT TRANSFERRED TO RO 204 AROUND 0100, PT IS ALERT AND ORIENTED, DENIES PAIN OR SOB, SR ON TELE, ASSESSMENTS CHARTED, HAYDEE DRAIN TO THE RLQ INTACT, CARBALLO INTACT, VSS, DENIES CONCERNS, WILL CONTINUE TO MONITOR AND FOLLOW POC
[2021-01-29 04:35] LABS: HEMATOCRIT 24.7 % (42.0-52.0); HEMOGLOBIN 8.2 gm/dL (14.0-18.0); MCH 27.6 pg (26.0-34.0); MCHC 33.1 g/dL (28.0-37.0); MCV 83.3 fL (80.0-100.0); RBC 2.97 mil/uL (4.50-6.00); RDW 15.3 % (10.5-14.5); WBC 11.1 thou/uL (4.0-11.0)
[2021-01-29 05:19] LABS: CALCIUM 8.1 mg/dL (8.5-10.1); CREATININE 1.4 mg/dL (0.7-1.3); PHOSPHORUS 2.2 mg/dL (2.5-4.9); POTASSIUM 3.9 mmol/L (3.5-5.1)
[2021-01-29 05:31] LABS: ALBUMIN 2.1 g/dL (3.4-5.0); DIRECT BILIRUBIN 0.7 mg/dL (<0.1-0.2); TOTAL PROTEIN 5.3 g/dL (6.4-8.2)
--- NOTE | 2021-01-29 13:47 | NUR ---
spoke with patient who worked with therapy today. DIscussed home health care. Patient does not believe he needs at id. Patient reports he just worked with therapy and feels in a few days will be better. He is currently wearing oxygen which he does not live at home. he lives in [place] and lives alone at home. Casemgt following
--- NOTE | 2021-01-29 17:49 | NUR ---
RECEIVED THE PATIENT CONSCIOUS AND ORIENTED.ON ROOM AIR BREATHING SPONTANEOUSLY.WITH HAYDEE DRAIN INTACT.WITH CARBALLO CATHETER INTACT.NOT IN PAIN OR ANY RESPIRATORY DISTRESS.AMBULATED PATIENT TO THE BATHOM AND HE WAS ABLE TO SIT ON THE CHAIR.HAD BOWEL MOVEMENT TODAY.NEEDS ATTENDED.
[2021-01-30 03:45] VITALS: BP 146/59
[2021-01-30 04:18] LABS: ALBUMIN 1.9 g/dL (3.4-5.0); CALCIUM 7.9 mg/dL (8.5-10.1); CREATININE 1.3 mg/dL (0.7-1.3); PHOSPHORUS 2.4 mg/dL (2.5-4.9); POTASSIUM 3.5 mmol/L (3.5-5.1)
--- NOTE | 2021-01-30 04:35 | NUR ---
SLEPT MOST OF SHIFT. BOWEL SOUNDS POSITIVE, AND HAD ONE LARGE LIQUID DARK GREEN STOOL. PASSING GAS. WORKING ON GOALS AND PLAN OF CARE FOR NOC. DENIES COMPLAINTS OF PAIN. CONTINUE TO ASSES CLOSELY.
[2021-01-30 07:17] VITALS: BP 180/72
--- NOTE | 2021-01-30 07:56 | NUR ---
PATIENT WAS FOUND ON 1L OF OXYGEN SAT 97% PT PLACED OXYGEN ON STANDBY
[2021-01-30 11:21] VITALS: BP 126/66
[2021-01-30 15:48] VITALS: BP 150/81
--- NOTE | 2021-01-30 17:01 | NUR ---
RECEIVED PATIENT CONSCIOUS AND ORIENTED.INITIALLY ON NASAL CANNULA AT 1LPM, THEN KEPT ON ROOM AIR MAINTAING OXYGEN SATURATION MORE THAN 95%.NOT IN PAIN OR DISTRESS.WITH HAYDEE DRAIN INTACT.WITH CARBALLO CATHETER INTACT.HAD BOWEL MOVEMENT TODAY AND REFUSED TO TAKE LAXATIVE ANYMORE.HAD FULL DIET, TOLERATING WELL.VITALLY STABLE.ALL NEEDS ATTENED.
[2021-01-30 20:30] VITALS: BP 146/57
--- NOTE | 2021-01-31 02:44 | NUR ---
RESTING QUIETLY WITHOUT COMPLAINTS. PASSING GAS AND BELCHING AT TIMES. HAD ONE SMALL LOOSE STOOL THIS SHIFT. WORKING ON GOALS AND PLAN OF CARE FOR NOC. UP TO BATHROOM WITH WALKER AND STANDBY ASSIST. CONTINUE TO ASSES CLOSELY.
[2021-01-31 04:00] VITALS: BP 137/56
[2021-01-31 04:25] LABS: CALCIUM 7.8 mg/dL (8.5-10.1); CREATININE 1.3 mg/dL (0.7-1.3); PHOSPHORUS 1.7 mg/dL (2.6-4.7); POTASSIUM 3.4 mmol/L (3.5-5.1)
[2021-01-31 07:10] VITALS: BP 135/49
[2021-01-31 11:03] VITALS: BP 135/49
[2021-01-31 11:45] VITALS: BP 140/54
[2021-01-31 12:15] VITALS: BP 140/56
--- NOTE | 2021-01-31 14:53 | NUR ---
PT ALERT AND ORIENTED TIMES FOUR. VSS. SR ON TELE. PT DENIES PAIN/SOA. HAYDEE DRAIN REMOVED PER SURGERY THIS MORNING. CARBALLO CATH REMOVED PER NURSE. PT TOLERATES MEDS AND MEALS. PT UP SITTING IN THE CHAIR FOR MOST OF THE SHIFT. PLANS FOR DISCHARGE THIS AFTERNOON. WILL CONTINUE TO MONITOR.
== END 2021-01-31 16:11 | disposition home or self-care (01) | DRG 853 ==
LOC: 4W 14:42 → ICU 01-26 22:18 → 2N 01-29 01:52
PROVIDERS: Anesthesiology; Hospitalist; Internal Medicine; Internal Medicine Pulmonary Disease; Nurse Practitioner; Nurse Practitioner Family; ADMIT Hospitalist; ATTEND Hospitalist
PROC: 0FT44ZZ Resection of Gallbladder, Percutaneous Endoscopic Approach (ICD-10-PCS; principal; 2021-01-25)
PROC: BF101ZZ Fluoroscopy of Bile Ducts using Low Osmolar Contrast (ICD-10-PCS; principal; 2021-01-25)
PROC: 0FC98ZZ Extirpation of Matter from Common Bile Duct, Via Natural or Artificial Opening Endoscopic (ICD-10-PCS; 2021-01-26)
PROC: 30233M1 Transfusion of Nonautologous Plasma Cryoprecipitate into Peripheral Vein, Percutaneous Approach (ICD-10-PCS; 2021-01-26)
PROC: 0BH17EZ Insertion of Endotracheal Airway into Trachea, Via Natural or Artificial Opening (ICD-10-PCS; 2021-01-26)
PROC: 5A1935Z Respiratory Ventilation, Less than 24 Consecutive Hours (ICD-10-PCS; 2021-01-26)
PROC: BF101ZZ Fluoroscopy of Bile Ducts using Low Osmolar Contrast (ICD-10-PCS; 2021-01-26)
DX: A41.9 Sepsis, unspecified organism (principal); N17.0 Acute kidney failure with tubular necrosis; R65.21 Severe sepsis with septic shock; J96.01 Acute respiratory failure with hypoxia; J18.9 Pneumonia, unspecified organism; K85.90 Acute pancreatitis without necrosis or infection, unspecified; K50.90 Crohn's disease, unspecified, without complications; K56.7 Ileus, unspecified; K80.63 Calculus of gallbladder and bile duct with acute cholecystitis with obstruction; E78.5 Hyperlipidemia, unspecified; E66.9 Obesity, unspecified; I12.9 Hypertensive chronic kidney disease with stage 1 through stage 4 chronic kidney disease, or unspecified chronic kidney disease; E11.649 Type 2 diabetes mellitus with hypoglycemia without coma; D63.1 Anemia in chronic kidney disease; E87.5 Hyperkalemia; N18.30 Chronic kidney disease, stage 3 unspecified; E11.22 Type 2 diabetes mellitus with diabetic chronic kidney disease; Z20.822 Contact with and (suspected) exposure to COVID-19; Z90.49 Acquired absence of other specified parts of digestive tract; Z87.891 Personal history of nicotine dependence; Z88.8 Allergy status to other drugs, medicaments and biological substances; Z79.84 Long term (current) use of oral hypoglycemic drugs; Z79.899 Other long term (current) drug therapy; Z68.34 Body mass index [BMI] 34.0-34.9, adult
CPT/HCPCS: 10047; 10078; 10194; 50010; 50101; 50411; 50555; 50558; 51297; 51474; 51489; 52265; 52266; 53307; 53312; 53314; 55245; 55317; 56462; 56525; 56526; 56527; 58567; 58574; 58586; 62110; 62900; 70005

== ENCOUNTER 2021-02-08 17:35 | Inpatient (IN) | payer OTHER ==
[~2021-02-08] VITALS: Ht 182.9 cm; Wt 111.2 kg
[~2021-02-08 17:35] MED LIST: ACTOS 45 MG45 M1 PO; B COMPLEX1 EACH PO; BALSALAZIDE DI750 M1 PO; CARVEDILOL25 MG PO; COZAAR 25 MG TA25 M1 PO; DILTIAZEM ER180 M2 PO; FENOFIBRATE160 MG PO; FISH OIL 1,001000 M3 PO; FOLIC ACID1 MG PO; FUROSEMIDE 20 M20 MG PO; GLIPIZIDE ER10 MG PO; LIPITOR 20 MG T20 M1 PO; METFORMIN HCL500 M3 PO; SPIRONOLACTONE25 MG PO; VITAMIN C500 M2 PO
[2021-02-08 20:42] VITALS: BP 140/62
[2021-02-08 21:43] LABS: HEMOGLOBIN 8.3 gm/dL (14.0-18.0)
--- NOTE | 2021-02-09 05:09 | NUR ---
PATIENT ADMITTED FOR ANEMIA. PATIENT HGB IS 8.3L AT THIS TIME. FALL PRECAUTION IN PLACE. DINNER WAS SERVED AND PATIENT ENCOURAGED FLUIDS. PATIENT HAS 5 LAP SITES WITH STERI STRIP AND ONE WITH BOARDER GAUZE NO DISCHARGE NOTED,C/D/I . FALL PRECAUTION IN PLACE. PATIENT IN BED ASLEEP AT THIS TIME BREATHING REGULAR AND UNLABOURED.
[2021-02-09 05:38] LABS: HEMATOCRIT 23.7 % (42.0-52.0); HEMOGLOBIN 7.8 gm/dL (14.0-18.0); MCH 27.4 pg (26.0-34.0); MCHC 32.9 g/dL (28.0-37.0); MCV 83.3 fL (80.0-100.0); RBC 2.85 mil/uL (4.50-6.00); RDW 16.3 % (10.5-14.5); WBC 5.8 thou/uL (4.0-11.0)
[2021-02-09 05:45] LABS: CALCIUM 7.7 mg/dL (8.5-10.1); CREATININE 1.4 mg/dL (0.7-1.3); POTASSIUM 3.4 mmol/L (3.5-5.1)
[2021-02-09 06:00] LABS: % SATURATION 7 % (20-39); IRON 14 ug/dL (65-175); TIBC 205 ug/dL (250-450)
[2021-02-09 06:58] LABS: FOLIC ACID 37.4 ng/mL (8.6-58.9)
[2021-02-09 07:25] VITALS: BP 145/68
[2021-02-09 13:44] LABS: DIRECT BILIRUBIN 0.3 mg/dL (<0.1-0.2); TOTAL BILIRUBIN 0.7 mg/dL (0.2-1.0); TOTAL PROTEIN 5.6 g/dL (6.4-8.2)
--- NOTE | 2021-02-09 14:32 | NUR ---
PT ADMITTED RELATED TO SYMPTOMATIC ANEMIA FROM [place]. CM REVIEWED CHART AND SPOKE WITH CARE TEAM. CM MET WITH PT AT BEDSIDE THIS DAY. PT APPEARED TO BE A&O X4. CM ROLE INTRODUCED. PT INDICATED HE RESIDES IN A HOUSE WITH HIS PETS WITH 1 STEP TO ENTER AND A COUPLE STEPS INSIDE. 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 PT INDICATED NO DME. PT INDICATED HIS PCP IS DR. CALABRESE AT [facility]. PT INDICATED HE WILL NEED TRANSPORT BACK TO HIS CARE IN THE ED AT [facility] [place]. PT HAD BEEN HER AT DISCHARGED HOME 01/30 WITH NO NEEDS. CM FOLLOWING REGARDING DC PLANNING.
--- NOTE | 2021-02-09 15:12 | NUR ---
ASSUMED PT CARE THIS AM. PT A&OX4, ABLE TO MAKE NEEDS KNOWN. PATIENT HAS 6 LAP SITES NOTED ON THE ABDOMEN FROM PREVIOUS SURGERY. IV INFILTRATED, NEW IV TO THE RIGHT FOREARM SALINE LOCKED. PATIENT HAS BILATERAL LOWER EXTREMITY EDEMA NOTED, SANDEE THOMAS APPLIED AT PHYSICIANS ORDER. BLISTERS NOTED ON THE PATIENTS LEFT LOWER LEG, PHYSICIAN INFORMED. PATIENT ON TELEMETRY. FALL PRECAUTIONS ARE IN PLACE, CALL LIGHT WITHIN REACH.
[2021-02-09 15:29] VITALS: BP 134/56
[2021-02-09 21:44] VITALS: BP 147/71
[2021-02-10 03:33] LABS: INR 1.12; PROTIME 12.1 Seconds (10.5-12.1)
--- NOTE | 2021-02-10 04:10 | NUR ---
PATIENT HAS 6 LAP SITE NO S/S OF INFECTION NOTED. PATIENT ADMITTED FOR ANEMIA NO BLEEDING NOTED THIS SHIFT. PATIENT HAS BEEN NPO SINCE MIDNIGHT. PATIENT AMBULATES TO THE BATHROOM WITH STEADY GAITS. FALL PRECAUTION IN PLACE. PATIENT IN BED ASLEEP AT THIS TIME BREATHING REGULAR AND UNLABOURED.
[2021-02-10 08:07] VITALS: BP 144/51
--- NOTE | 2021-02-10 12:10 | NUR ---
CARE TEAM INDICATED THAT PT IS TO HAVE AN EGD LATER THIS AFTERNOON. CM FOLLOWING REGARDING DC PLANNING.
[2021-02-10 12:43] LABS: HEMATOCRIT 24.4 % (42.0-52.0); HEMOGLOBIN 7.6 gm/dL (14.0-18.0); MCH 27.1 pg (26.0-34.0); MCHC 31.2 g/dL (28.0-37.0); MCV 86.9 fL (80.0-100.0); RBC 2.81 mil/uL (4.50-6.00); RDW 17.7 % (10.5-14.5); WBC 5.9 thou/uL (4.0-11.0)
--- NOTE | 2021-02-10 14:11 | NUR ---
WOUND CONSULT; A SMALL AREA TO THE COCCYX WAS IDENTIFIED WITH A WHITE WOUNDBED. APPROX 0.5 X 0.5 X 0.1. NO S/S OF INFECTION. PT DENIES PAIN. PATIENT CAN AMBULATE. THE PATIENT CAN TURN HIMSELF. RECOMMENDATIONS; 1-APPLY ZGUARD. 2-AVOID SITTING FOR MOR THAN 1 HOUR. 3-PATIENT MAY SHOWER. DISCUSSED WITH RN
[2021-02-10 16:56] VITALS: BP 162/75
[2021-02-10 19:02] VITALS: BP 144/51
--- NOTE | 2021-02-10 19:24 | NUR ---
ASSUMED CARE OF PATIENT AT SHIFT CHANGE. ASSESSMENT CHARTED. MEDICATIONS HELD EXCEPT FOR BETA LUBNA; ADMINISTERED W SMALL SIP OF WATER. PATIENT NPO FOR EGD. PATIENT LEFT FLOOR AT APPROX 1600. REGULAR DIET RESUMED; INSULIN HELD FOR GLUCOSE <100. PATIENT GETIING UP TO BATHROOM SBA W NO ISSUES. LAP SITES X6 REMAIN C/D/I. DENIED PAIN ALL SHIFT. USING URINAL TO VOID W NO ISSUES; BM X2 SEMIFORMED. POST EGD VITALS STABLE. DENIED FURTHER NEEDS. ENDORSED TO NOC RN
[2021-02-10 19:37] VITALS: BP 153/57
--- NOTE | 2021-02-11 00:09 | NUR ---
Assumed pt care at 1900. A/OX4, VSS.Denies pain on assessment, no N/V reported. Up ad maddy,encouraged to call for help as needed and agreeable to do so. Resting quietly at this time w/o any distress noted. SA/PVCs on telemetry.
[2021-02-11 07:48] VITALS: BP 148/60
[2021-02-11] MEDS ORDERED: PROTONIX 20 MG20 M1 PO (11:04)
--- NOTE | 2021-02-11 11:45 | NUR ---
PT HAD EGD YESTERDAY. CARE TEAM INDICATED THAT HE IS MEDICALLY STABLE TO DC HOME THIS DAY. PT WILL NEED CAB VOUCHER BACK TO [place] ED WHERE HE LEFT HIS CAR. CM TO PROVIDE. NO OTHER CM INTERVENTION INDICATED. CASE CLOSED.
[2021-02-11 11:59] VITALS: BP 148/60
--- NOTE | 2021-02-11 12:52 | NUR ---
ASSUMED CARE OF PATIENT AT SHIFT CHANGE. ASSESSMENT CHARTED. MEDS ADMINISTERED PER EMAR. VSS. PATIENT A&OX4. GETS UP INDEPENDENTLY W NO ISSUES, DENIES PAIN AND IS TOLERATING PO INTAKE WELL. BM'S ARE REGULAR, VOIDING ADEQUATELY W NO ISSUES. PATIENT IMPROVEMENT DEEMED READY FOR DISCHARGE. TAXI VOUCHER TO [facility] GIVEN TO ED FOR PATIENT PICKUP. IV DISCONTINUED. TELE TAKEN OFF. NO ISSUES. PATIENT LEFT UNIT AT APPROX 1245.
--- NOTE | 2021-02-12 18:06 | PATH ---
[facility] [place] [address] PATHOLOGY RPT PROCEDURE Name: DAVID EARLY Room #: 458-P DIS IN M.R.#: [id number] Admission: 02/08/21 Date of : 48 Discharge: 02/11/21 Report #: [id number] Path Case #: [id number] [facility] Accession Number: [id number] . 01 Material submitted: . PART A: duodenum - DUODENAL BX-R/O CELIAC PART B: stomach - ANTRUM BX-R/O H PYLORI PART C: esophagus - ESOPHAGEAL STRICTURE BX-R/O BARRETTS . 01 Clinical history: . A. R/O CELIAC B. R/O H. PYLORI C. R/O AVILEZ'S . 02 Diagnosis: A. Small bowel mucosa, duodenum R/O celiac, endoscopic biopsy: - No diagnostic abnormalities present. - Negative for villous blunting or increase in intraepithelial lymphocytes. . B. Gastric mucosa, antrum R/O H. pylori, endoscopic biopsy: - Moderate reactive gastropathy. - Negative for intestinal metaplasia or atrophy. - Negative for Helicobacter pylori (properly controlled immunohistochemical stain performed). . C. Gastric cardia-type mucosa, esophageal stricture R/O Avilez's, endoscopic biopsy: - Focal specialized columnar epithelium, compatible with Avilez's metaplasia (please see comment). - Focal fibrotic area within lamina propria associated with reactive glands present. - No definite dysplasia identified. (IUV:elie; 02/12/2021) QMS 02/12/2021 1421 Local . 02 Comment: The above diagnosis of Avilez's esophagus is made due to presence of intestinal metaplasia and with the assumption that the biopsies were obtained from the columnar mucosa in the distal esophagus located at least 1 cm proximal to the top of the gastric folds as per the 2016 ACG guidelines. . Due to the presence of acute and chronic inflammation surrounding the irregular glands as well as the fibrotic focus within the lamina propria, the interpretation for dysplasia is significantly limited. However, the presence of ulceration as well as the surrounding fibrosis within lamina [address] [address] PATHOLOGY RPT PROCEDURE Name: DAVID EARLY Room #: 458-P DIS IN M.R.#: [id number] Admission: 02/08/21 Date of : 48 Discharge: 02/11/21 Report #: [id number] Path Case #: [id number] propria, supports reactive changes for the focus. Please correlate clinically. (IUV:elie; 02/12/2021) . 02 Electronically signed: . Landy Bell MD, Pathologist NPI- [id number] . 01 Gross description: . A. The specimen is received in formalin, labeled "David Celso, duodenum biopsy". Received are two segments of pale pimentel tissue measuring 0.3 cm in maximum dimensions. The specimen is submitted entirely in cassette A1. . B. The specimen is received in formalin, labeled "David Celso, antrum biopsy". Received are two segments of pale pimentel tissue measuring 0.2 and 0.5 cm in maximum dimensions. The specimen is submitted entirely in cassette B1. . C. The specimen is received in formalin, labeled "David Celso, esophageal stricture biopsy". Received is a segment of pale pimentel tissue measuring 0.4 cm in maximum dimensions. Specimen is submitted entirely in cassette C1. (CAA; 02/11/2021) QAC/QAC 02/11/2021 1922 Local . 02 Pathologist provided ICD-10: K31.9 . 02 CPT . 725103, 151113, 065925, [id number] Specimen Comment: A courtesy copy of this report has been sent to [phone], [phone] Specimen Comment: [phone] Specimen Comment: Report sent to / DR TATE Performed at: 01 [facility] [address] [place] [address] [address], [place] [id number] MD Enio Richmond MD Phone: [phone] Performed at: [address] [id number] MD Landy Bell MD Phone: [phone]
== END 2021-02-11 12:43 | disposition home or self-care (01) | DRG 811 ==
LOC: 4W 17:35
PROVIDERS: Nurse Practitioner; Nurse Practitioner Family; ADMIT Hospitalist; ATTEND Hospitalist
DX: D50.0 Iron deficiency anemia secondary to blood loss (chronic) (principal); E43 Unspecified severe protein-calorie malnutrition; K50.90 Crohn's disease, unspecified, without complications; K20.80 Other esophagitis without bleeding; K22.2 Esophageal obstruction; E78.5 Hyperlipidemia, unspecified; N18.30 Chronic kidney disease, stage 3 unspecified; E11.22 Type 2 diabetes mellitus with diabetic chronic kidney disease; R53.81 Other malaise; I12.9 Hypertensive chronic kidney disease with stage 1 through stage 4 chronic kidney disease, or unspecified chronic kidney disease; K44.9 Diaphragmatic hernia without obstruction or gangrene; K29.40 Chronic atrophic gastritis without bleeding; Z88.8 Allergy status to other drugs, medicaments and biological substances; Z87.891 Personal history of nicotine dependence; Z90.49 Acquired absence of other specified parts of digestive tract
CPT/HCPCS: 10045; 10047; 62110; 62900; 70005